=== PATIENT | female | born 1990 | race Caucasian/White ===

== ENCOUNTER → 2019-01-26 | Outpatient (CLI) | payer OTHER ==
--- NOTE | 2019-01-26 11:00 | REP ---
Clinical: Anatomical evaluation. Comparison: None. Findings: Examination demonstrates a single live intrauterine in breech presentation. motion is identified by technologist. Placenta is noted anterior and grade grade 1 without evidence for placenta previa or abruption. Amniotic fluid volume is normal. Cervix measures 4.4 cm in length and appears closed. No evidence for nuchal cord. Gestational age by LMP 20 weeks 3 days with KAE 06/12/2019 . Gestational age by current measurements 21 weeks 0 days with KAE 06/08/2019 . FHR equals 146 beats per minute. BPD 5.0 cm 21 weeks 2 days HC 18.5 cm 20 weeks 6 days AC 15.9 cm 21 weeks 0 days FL 3.4 cm 20 weeks 5 days HL 3.3 cm 21 weeks 2 days HC/AC ratio 1.16 Estimated weight 386 grams ( 65th percentile). Anatomical assessment demonstrates normal structures including cranium, choroid plexus, cavum, cerebellum/posterior fossa, facial features, lungs, diaphragm, stomach, cord insertion/three-vessel cord, kidneys/bladder, spine, and extremities. Impression: Single live intrauterine in breech presentation demonstrating appropriate interval growth. Limited evaluation of the heart/ventricular outflow tracts. Remainder of the anatomical assessment is complete and normal. Electronically Signed by Danny Egan MD 01/26/2019 10:52 A
== END ==
LOC: M RAD 09:53
PROVIDERS: ATTEND Nurse Practitioner Women's Health
DX: Z34.83 Encounter for supervision of other normal pregnancy, third trimester (principal); Z3A.21 21 weeks gestation of pregnancy

== ENCOUNTER 2019-06-04 23:35 | Inpatient (IN) | payer OTHER ==
[~2019-06-04] VITALS: Ht 167.6 cm; Wt 81.6 kg
[2019-06-05] VITALS (21 sets, daily range): BP systolic 98–170; BP diastolic 55–119
[2019-06-05] MEDS ORDERED: LACTATED RINGER'S 1000 ML IV STA (00:24)
[2019-06-05] MEDS: LR 1,000 ML IV SCH ×2 (00:24→07:00)
[2019-06-05] MEDS ORDERED: OXYTOCIN 30 UNITS IN 0.9% NaCl 500ML IV BAG (J2590) As Ordered ONE (00:48)
[2019-06-05 00:49] LABS: HEMATOCRIT 39.4 % (36.0-47.0); HEMOGLOBIN 13.4 g/dl (12.0-15.5); MEAN CORPUSCULAR HEMOGLOBIN 31.5 pg (27.0-33.0); MEAN CORPUSCULAR VOLUME 92.5 fl (80.0-96.0); PLATELET COUNT, AUTOMATED 236 10^3/uL (150-450); RED BLOOD COUNT 4.26 10^6/uL (4.00-5.40); WHITE BLOOD COUNT 12.1 10^3/uL (4.0-10.0)
--- NOTE | 2019-06-05 00:50 | HPEPDOC ---
Obstetrical History & Physical General Date of Admission Jun 05, 2019 at 00:25 History of Present Illness OB Considerations: - [facility] is a 28yo at 39+0wks by LMP (KAE [id number]) presents with regular painful contractions since 1600 30Sep. She reports that they have gotten closer together and more painful over the last few hours. She denies LOF, vaginal bleeding. She reports movement. Chief Complaint: Contractions, term Information Provided By: Patient Age: 28 : 2 Term: 1 Pre-term: 0 Abortions: 0 Livin Care Care: Good Care Dating Final EDC: Jun 12, 2019 Past Medical History Past Obstetrical History : Past Obstetrical History: Multigravida Type of Delivery: Spontaneous Vaginal Del. Sex of Infant: Female Weight of (grams): 3400 Complications: No PRODUCT SAFETY HEAD History: No pertinent history Past Medical History Medical History Childhood Asthma Surgical History: Twisp teeth, Other (Knee surgery. Foot Surgery) Family History Significant Family History: No pertinent family hx Social History Marital Status: Family situation: Spouse/partner home Psychosocial History: No pertinent psych hx * Smoker: non-smoker Alcohol: Denies Drugs: denies Imunizations Tdap status: current Influenza Status: needs Physical Examination Physical Examination GENERAL: Alert and oriented times three. ABDOMEN: Gravid and non-tender to touch. FETUS: Is vertex (VTX) by Kike. EXTREMITIES: No edema. Pelvis proven to 3400, adequate for trial of labor VTX by exam EFW 3600gm Laboratory Data Urine Culture: No Growth Pertinent Laboratoy Data Blood Type: A+ RBC Antibody Screen: Negative HIV: Negative Hepatitis B: Negative Hepatitis C: Unknown Rapid Plasma Reagin: Nonreactive Rubella: Immune Varicella: Immune Chlamydia/Gonorrhea: Negative Group B Streptococcus: Negative Quad Screen Test: Negative Cystic Fibrosis: Negative Glucose Tolerance Test: 153 (79/133/128/92) Anatomy Ultrasound Ultrasound Date: Feb 16, 2019 Placenta Location: Anterior Normal Anatomy: Yes Placenta Previa: No Steroid Therapy Steroid Therapy: No Vaginal Examination Dilation: 5 cm Effacement: 50% Station: -2 Cervical Consistency: Soft Cervical Position: Middle Presentation: Cephalic presentation Position: Vertex (occiput) Assessment Heart Rate (FHR): 140 Variability: Moderate Accelerations: Positive Decelerations: None Tocometer Contractions: Yes Frequency: regular, every 1-3 min. Duration: less than 60 seconds Strength: palpated as strong Multi-drug resistant Organism: No history of MDRO Assessment/Plan Assessment Nidhi is a 28yo at 39+0wks admitted in labor. Plan Admit and orient. Substation Operator Automatic and consent. Continuous Monitoring. VS and I&O per protocol. Diet: Clear. Group B Streptococcus (GBS) [negative]. Labs and intravenous (IV) per unit protocol. Counseled on Pitocin as indicated. Lactated Ringers (LR): Bolus [1000] mL, then at [125] mL/hr. Recheck in 2 to 4 hours or sooner if needed, consider AROM post Epidural. Carolyn Morales DO. Labor and Delivery Counseling Counseled patient on IOL, Transfusions and risk of transfusions (reactions and blood borne infections), monitoring (external and internal), infection and need for antibiotics, obstetric lacerations, operative deliveries (forceps and vacuum) and indication for section. Patient verbalized understanding and all questions were answered to patient's apparent satisfaction. CAROLYN MORALES DO Jun 05, 2019 00:49
[2019-06-05] MEDS ORDERED: FENTANYL 2MCG/ML ROPIVACAINE 0.2% IN 0.9% NACL 100ML IVBAG As Ordered ONE (01:33)
[2019-06-05] MEDS ORDERED: diphenhydrAMINE INJ 50MG/ML VIAL (J1200) IV PRN (02:09)
[2019-06-05] MEDS ORDERED: ONDANSETRON 4MG/2ML VIAL (J2405) IV PRN (02:09)
[2019-06-05] MEDS ORDERED: FENTANYL/ROPIVACAINE/NACL BAG 100 ML EPIDURAL SCH (02:09)
[2019-06-05] MEDS ORDERED: EPIDURAL COMMENT XX SCH (02:09)
[2019-06-05] MEDS ORDERED: EPIDURAL/PCA KEYS XX PRN (02:09)
[2019-06-05] MEDS ORDERED: NALOXONE INJ 0.4 MG/1 ML VIAL (J2310) IV PRN (02:09)
[2019-06-05] MEDS ORDERED: LACTATED RINGER'S 1000 ML IV PRN (02:09)
[2019-06-05] MEDS ORDERED: REFRIGERATOR IV KEYS XX PRN (02:09)
[2019-06-05] MEDS ORDERED: ePHEDrine SULFATE 25 MG/5 ML(5MG/ML) SYRINGE IV PRN (02:09)
--- NOTE | 2019-06-05 04:38 | DNPDOC ---
[facility] Delivery Note Delivery Note DATE OF DELIVERY: [05Jun2019] PREDELIVERY DIAGNOSIS: [39]-[0]/7 weeks' gestation and labor. POST DELIVERY DIAGNOSIS: Delivered. PROCEDURE: [Spontaneous vaginal delivery]. FAX MACHINE REPAIRER: [Dao] ANESTHESIA: [Epidural]. ESTIMATED BLOOD LOSS: [300] mL. FINDINGS: [7] pound [7] ounce [3360gm] Male ([place]) , Score [8]/[9], nuchal cord times [None]. DELIVERY SUMMARY: Nidhi is a 28yo at 39+0wks by LMP (KAE [id number]) admitted in labor. She had a good Epidural. She progressed to C/C/+2. With excellent maternal effort, delivered OA, restituted LOT, with right anterior shoulder delivering spontaneously followed by the rest of the body. The Male was placed on the maternal abdomen. Delayed cord clamping was observed, then the cord was doubly clamped and cut by father of the baby. Cord blood was obtained per routine. Placenta delivered intact with gentle downward traction, philip, central insertion, 3VC. Systematic review of the perineum revealed a 2nd degree midline laceration. This was repaired in usual fashion with a 3-0 Vicryl suture. Labs, Instruments, and [place] were correct x2. Mother and Infant stable and bonding when physician left the room. DO DAO Wells CRYSTAL B. DO Jun 05, 2019 04:38
[2019-06-05] MEDS ORDERED: DIBUCAINE 1% OINTMENT 30GM TOP PRN (04:45)
[2019-06-05] MEDS ORDERED: ACETAMINOPHEN TAB 650MG DOSE (2X325MG) PO PRN (04:45)
[2019-06-05] MEDS ORDERED: IBUPROFEN 800 MG TAB PO PRN (04:45)
[2019-06-05] MEDS ORDERED: DOCUSATE SODIUM 100 MG CAP PO PRN (04:45)
[2019-06-05] MEDS ORDERED: MEASLES,MUMPS,RUBELLA VACCINE INJ (MMR-II) (90707) SC SCH (04:45)
[2019-06-05] MEDS ORDERED: RHOGAM 300 MCG (1500 IU) INJ (J2790) IM SCH (04:45)
[2019-06-05] MEDS ORDERED: METHYLERGONOVINE MALEATE 0.2 MG TAB PO PRN (04:45)
[2019-06-05] MEDS ORDERED: IBUPROFEN 600 MG TAB PO PRN (04:45)
[2019-06-05] MEDS ORDERED: SLF 3 ML SYR IV PRN (08:00)
--- NOTE | 2019-06-05 08:47 | IPN ---
DATE: 06/05/2019 This patient has requested a circumcision of their male infant. After discussing risks and benefits of circumcision of medical and nonmedical indications, penile block and aftercare expressed understanding of penile block, aftercare and bleeding, signed consent form. Await the clearance by the electric refrigerator servicer. 20-minute discussion. All questions were answered.
[2019-06-05] MEDS: PRENATAL VITAMINS CHEWABLE TABLET PO SCH (09:00)
[2019-06-05] MEDS: SLF 3 ML SYR IV SCH ×2 (14:08→21:41)
[2019-06-05] MEDS: ACETAMINOPHEN 500 MG TAB PO PRN (19:53)
[2019-06-06 05:46] VITALS: BP 119/60
[2019-06-06] MEDS: ACETAMINOPHEN 500 MG TAB PO PRN (07:59)
[2019-06-06] MEDS: PRENATAL VITAMINS CHEWABLE TABLET PO SCH (07:59)
--- NOTE | 2019-06-06 08:07 | IPN ---
DATE: 06/06/2019 day #1. 28-year-old 2 now para 2 was admitted with contractions at 39 weeks of gestation. Spontaneous vaginal delivery with epidural in place. Live male 7 pounds 7 ounces, 3360 grams, scores were 8 and 9 and 1 and 5 minutes respectively. Her admitting hemoglobin was 13.4, hematocrit 39.2 and platelets 236. Her vital signs presently - her blood pressure 119/60, respirations are 18, pulse 74, temperature 98.4. We discussed phlebitis, cystitis, mastitis, metritis, cellulitis, diet, exercise pain management, perineal, breast and wound care. The rest examination unremarkable. Normocephalic, atraumatic. Neck full range of motions. Pupils equal and reactive to light. Distal pulses symmetric. No evidence of deep venous thrombosis (DVT), pulmonary embolism (PE) or superficial phlebitis. Chest is clear bilateral bases. No wheezes or rhonchi. No CVA tenderness. Abdomen soft. Four quadrant bowel sounds are noted. Perineum is intact. She is not complaining of any chest pain, shortness of breath or dyspnea on exertion. In summary we have a term gestation delivered a live male . Plans are for discharge tomorrow, medications dispensed at discharge, and 6-week checkup.
[2019-06-06] MEDS ORDERED: INFLUENZA QUADRIVALENT PF VACCINE 0.5ML SYRINGE (90686) IM ONE (09:00)
[2019-06-06] MEDS ORDERED: COLA100C5 PO (09:39)
[2019-06-06] MEDS ORDERED: PRENCHW PO (09:39)
[2019-06-06] MEDS ORDERED: DIBU10OI TOP (09:39)
[2019-06-06] MEDS ORDERED: IBUP80TA PO (09:39)
[2019-06-06] MEDS ORDERED: ACET-683 PO (09:39)
== END 2019-06-06 11:20 | disposition home or self-care (01) | DRG 807 ==
LOC: M LDO 23:35 → M LDI 06-05 00:25 → M OBS 06-05 06:45
PROVIDERS: ADMIT Obstetrics & Gynecology; ATTEND Obstetrics & Gynecology
PROC: 10E0XZZ Delivery of Products of Conception, External Approach (ICD-10-PCS; principal; 2019-06-05)
PROC: 0KQM0ZZ Repair Perineum Muscle, Open Approach (ICD-10-PCS; 2019-06-05)
DX: O70.1 Second degree perineal laceration during delivery (principal); Z37.0 Single live birth; Z3A.39 39 weeks gestation of pregnancy

== ENCOUNTER 2019-06-22 12:27 | Emergency (ER) | payer OTHER ==
[~2019-06-22] VITALS: Ht 167.6 cm; Wt 74.4 kg
[~2019-06-22 12:27] MED LIST: ACET-683 PO; COLA100C5 PO; DIBU10OI TOP; IBUP80TA PO; PRENCHW PO
[2019-06-22] MEDS ORDERED: BLAC1CAP2 PO (12:59)
[2019-06-22 13:09] LABS: BASO # 0.1 10^3/uL (0.0-0.2); BASO % 1.1 % (0.0-1.0); EOS # 0.2 10^3/uL (0.0-0.5); EOS % 2.5 % (0.0-3.0); HEMATOCRIT 47.5 % (36.0-47.0); HEMOGLOBIN 15.5 g/dl (12.0-15.5); LYMPH % 27.3 % (24.0-44.0); MEAN CORPUSCULAR HEMOGLOBIN 30.8 pg (27.0-33.0); MEAN CORPUSCULAR HGB CONC 32.6 g/dl (32.0-36.5); MEAN CORPUSCULAR VOLUME 94.2 fl (80.0-96.0); MONO # 0.5 10^3/uL (0.0-0.8); MONO % 7.1 % (0.0-5.0); NEUTROPHILS # 4.6 10^3/uL (1.5-8.5); NEUTROPHILS % 61.6 % (36.0-66.0); PLATELET COUNT, AUTOMATED 373 10^3/uL (150-450); RED BLOOD COUNT 5.04 10^6/uL (4.00-5.40); WHITE BLOOD COUNT 7.5 10^3/uL (4.0-10.0)
--- NOTE | 2019-06-22 14:46 | REP ---
PELVIC SONOGRAPHY: HISTORY: Pelvic pain. Bleeding. Status post vaginal delivery 17 days prior. FINDINGS: Transabdominal scanning is performed. uterus is 10.6 x 7.3 x 10.1 cm in dimension. Endometrial echo is 1.4 cm in thickness. There is some endometrial fluid. No hyperechoic focus is seen visualized bladder silvestre are smooth. There is a trace of free fluid. Normal ovaries are seen. Right ovary measures 2.7 x 1.9 x 1.6 cm. Left ovary dimensions are 3.1 x 1.9 x 1.9 cm. Doppler flow is normal in both ovaries. Resistive indices are 0.58 and 0.54 on the right and left respectively. IMPRESSION: Mild uterine enlargement. Somewhat thickened endometrium with endometrial fluid. No sonographic evidence of retained products of conception. Normal ovaries. Electronically Signed by Henrik Archibald MD 06/22/2019 07:43 P
[2019-06-22 14:58] VITALS: BP 110/74
== END 2019-06-22 15:03 | disposition home or self-care (01) ==
LOC: M ED 12:27
DX: O90.89 Other complications of the puerperium, not elsewhere classified (principal); R10.2 Pelvic and perineal pain; J45.909 Unspecified asthma, uncomplicated